=== PATIENT | female | born 1935 | race Caucasian/White ===

== ENCOUNTER 2016-10-01 10:00 | Outpatient (CLI) | payer BC | END 2016-10-01 19:47 | disposition home or self-care (01) | LOC: SMA 10:00 | PROVIDERS: ATTEND Internal Medicine | DX: Z12.31 Encounter for screening mammogram for malignant neoplasm of breast (principal) | CPT/HCPCS: 77067; G0202 ==

== ENCOUNTER 2016-10-18 14:00 | Outpatient (CLI) | payer BC | END 2016-10-18 19:13 | disposition home or self-care (01) | LOC: SUS 14:00 | PROVIDERS: ATTEND Internal Medicine | DX: R92.8 Other abnormal and inconclusive findings on diagnostic imaging of breast (principal) | CPT/HCPCS: G0206 ×2 ==

== ENCOUNTER 2017-09-02 10:01 | Outpatient (CLI) | payer BC | END 2017-09-02 20:01 | disposition home or self-care (01) | LOC: SMA 10:01 | PROVIDERS: ATTEND Internal Medicine | DX: R92.8 Other abnormal and inconclusive findings on diagnostic imaging of breast (principal) | CPT/HCPCS: 76641; 77066 ==

== ENCOUNTER 2017-12-30 11:05 | Outpatient (CLI) | payer BC | END 2017-12-30 19:55 | disposition home or self-care (01) | LOC: SMA 11:05 | PROVIDERS: ATTEND Internal Medicine | DX: R92.8 Other abnormal and inconclusive findings on diagnostic imaging of breast (principal) | CPT/HCPCS: 76641; 77066 ==

== ENCOUNTER 2018-06-08 19:52 | Emergency (ER) | payer BC ==
[~2018-06-08] VITALS: Ht 152.4 cm; Wt 59.0 kg
[2018-06-08 19:55] VITALS: BP_SYST 136
[2018-06-08 20:15] VITALS: BP_SYST 138
--- NOTE | 2018-06-08 20:30 | NUR ---
Patient to ER bed 08 for evaluation. Side rails up.
--- NOTE | 2018-06-08 20:34 | NUR ---
Pt AAOx4 presents to ED c/o nosebleed x 1 hour prior to arrival. No active bleeding present, denies injury/KO/N/V/D. No other injuries/complaints per pt/noted. Will continue to monitor.
--- NOTE | 2018-06-08 20:40 | NUR ---
ER Dr. HALL at bedside examining patient.
--- NOTE | 2018-06-08 21:00 | NUR ---
Lab at bedside for blood draw
[2018-06-08 21:25] LABS: ANION GAP 11 (5-15); CALCIUM 9.4 mg/dL (8.4-11.0); CHLORIDE 104 mmol/L (98-107); CREATININE 0.72 mg/dL (0.55-1.30); GLUCOSE 107 mg/dL (70-99); POTASSIUM 3.5 mmol/L (3.5-5.1); SODIUM SERUM 140 mmol/L (136-145); UREA NITROGEN, BLOOD 18 mg/dL (8-21)
[2018-06-08 21:39] LABS: BASOPHILS % (AUTO) 0.5 % (0.0-2.0); EOSINOPHILS # (AUTO) 0.3 K/uL (0.0-0.4); EOSINOPHILS % (AUTO) 3.4 % (0.0-4.0); HEMATOCRIT 39.6 % (36-48); HEMOGLOBIN 13.6 g/dL (12.0-16.0); LYMPHOCYTES % (AUTO) 39.6 % (20.5-51.5); MEAN CORPUSCULAR HEMOGLOBIN 31 pg (27-31); MEAN CORPUSCULAR HGB CONC 34 % (32-36); MEAN CORPUSCULAR VOLUME 92 fL (79.0-98.0); MONOCYTES # (AUTO) 0.7 K/uL (0.0-1.0); MONOCYTES % (AUTO) 9.5 % (1.7-9.3); NEUTROPHILS # (AUTO) 3.6 K/uL (1.8-7.7); PLATELET COUNT (AUTO) 396 K/uL (130-430); RED BLOOD CELL COUNT(AUTO) 4.32 MIL/uL (4.2-6.2); RED CELL DISTRIBUTION WIDTH 12.6 % (9.0-15.0); WHITE BLOOD COUNT (AUTO) 7.6 K/uL (4.8-10.8)
[2018-06-08 21:41] LABS: PROTHROMBIN TIME 10.4 SECS (9.5-12.5)
--- NOTE | 2018-06-08 22:02 | NUR ---
Pt resting comfortably in bed with no signs of distress. Family at bedside
[2018-06-08 22:45] VITALS: BP_SYST 139
--- NOTE | 2018-06-08 22:45 | NUR ---
Patient given written and verbal discharge instructions and verbalizes understanding. ER MD HALL discussed with patient the results and treatment provided. Patient in stable condition. ID arm band removed. NO Rx given. Patient educated on pain management and to follow up with PMD. Pain Scale 0. Opportunity for questions provided and answered. Medication side effect fact sheet provided.
== END 2018-06-08 22:45 | disposition home or self-care (01) ==
LOC: SED 19:52
DX: R04.0 Epistaxis (principal); I10 Essential (primary) hypertension; M79.7 Fibromyalgia
CPT/HCPCS: 36415; 80048; 85025; 85610-TC; 85730-TC; 99283